=== PATIENT | male | born 1955 | race American Indian/Alaskan Native ===

== ENCOUNTER 2017-08-24 11:04 | Day surgery (SDC) | payer OTHER ==
[2017-08-24] MEDS ORDERED: NACL 0.9% 1000 ML 1,000 ML IV SCH (12:00)
[2017-08-24 12:36] VITALS: BP 122/78
[2017-08-24 13:35] LABS: Blood Urea Nitrogen 11 mg/dL (9-20)
--- NOTE | 2017-08-25 09:45 | Cat Scan Report ---
CT CHEST, ABDOMEN AND PELVIS WITH CONTRAST INDICATION: Kidney cancer. COMPARISON: 02/03/2016 CT. FINDINGS: Chest, abdomen and pelvis CT performed following oral contrast and intravenous administration of 100 cc of Omnipaque 300. CHEST: Postsurgical changes with some scarring in the right lower lobe now noted as on axial image 100, series 3, suggesting interval nodule resection. Clear remainder lungs. Unremarkable heart and great vessels. No effusions or size significant adenopathy with few small right paratracheal lymph nodes again noted measuring up to 0.8 cm as on axial image 31, series 2. Patent central airway. Normal thyroid. Mild nonspecific distal esophageal wall prominence/thickening, not excluded for gastroesophageal reflux and/or hiatal hernia, amongst others. ABDOMEN: Right nephrectomy clips again noted with grossly unremarkable fossa, occupied by bowel. A gastrohepatic ligament lymph node now slightly prominent at 0.8 cm as on axial series 2, image 166, though remains nonspecific. Liver, spleen, gallbladder, pancreas, adrenals, nonaneurysmal abdominal aorta with a few atherosclerotic calcifications and IVC remain within normal limits. Stable left kidney, including a 0.8 cm lower pole cortical hypodensity/cyst. No ascites. Opacified GI tract nonobstructive. Mild descending colon stool. PELVIS: Stable small prostatic calcifications and non-opacified, suboptimally distended urinary bladder. Usual rectosigmoid stool. No free fluid or significant adenopathy. Lumbar spine degenerative changes from L2-L5 again noted, including mild spurring, L2-L3 degenerative sclerosis as also disc degeneration with narrowing and vacuum phenomenon. CONCLUSION: 1. Interval right lower lobe nodule resection without evidence of new pulmonary nodules. 2. Slight nonspecific gastrohepatic ligament lymph node prominence without CT evidence of solid organ metastatic disease in the abdomen or pelvis. Please correlate. 3. Few other incidental findings, including stable right nephrectomy, as above. Thank you for the opportunity to participate in this patient's care.
== END 2017-08-24 16:30 | disposition home or self-care (01) ==
LOC: CATHLABREC 11:04 → EDSTATUS 11:30 → CATHLABREC 16:30
PROVIDERS: ATTEND Internal Medicine Nephrology
DX: C64.1 Malignant neoplasm of right kidney, except renal pelvis (principal); Z90.5 Acquired absence of kidney
CPT/HCPCS: 36415; 71260; 74177; 82565; 84520; 96360; 96361; J7030; Q9967

== ENCOUNTER 2018-11-04 05:59 | Day surgery (SDC) | payer OTHER ==
[2018-11-04 06:48] LABS: Blood Urea Nitrogen 16 mg/dL (9-20)
[2018-11-04] MEDS ORDERED: NACL 0.9% 1000 ML 1,000 ML IV SCH (07:00)
[2018-11-04 08:45] VITALS: BP 131/84
--- NOTE | 2018-11-04 09:04 | Cat Scan Report ---
CT CHEST WITH CONTRAST INDICATION / CLINICAL INFORMATION: pulmonary nodule, hx of kidney cancer. TECHNIQUE: Axial CT images were obtained through the chest after 100 cc of Omnipaque 300 IV contrast. Sagittal a nd coronal reformatted images. All CT scans at this location are performed using CT dose reduction fo r ALARA by means of automated exposure control. COMPARISON: [facility] chest report dated 08/24/2017 FINDINGS: HEART: No significant abnormality. THORACIC AORTA: No significant abnormality. MEDIASTINUM and TREE: No significant abnormality. LUNGS: Linear scarring is identified in the right lower lobe consistent with right lower lobe nodule resection. Otherwise the lungs are clear. No new nodules identified. Minimal centrilobular emphysema tous changes are suspected in the upper lobes. PLEURA: No significant pleural effusion. No pneumothorax. SKELETAL SYSTEM: No significant abnormality. UPPER ABDOMEN: No significant abnormality. ADDITIONAL FINDINGS: None. IMPRESSION: Stable scarring in the right lower lobe. No pulmonary nodules appreciated. Minimal emphysematous marquez ges. Signer Name: Todd Mcfarland Jr, MD Signed: 11/04/2018 9:00 AM Workstation Name: [id number]
== END 2018-11-04 10:40 | disposition home or self-care (01) ==
LOC: CATHLABREC 05:59
PROVIDERS: ATTEND Internal Medicine Nephrology
DX: R91.1 Solitary pulmonary nodule (principal); I10 Essential (primary) hypertension; K21.9 Gastro-esophageal reflux disease without esophagitis; M19.90 Unspecified osteoarthritis, unspecified site; F17.210 Nicotine dependence, cigarettes, uncomplicated; Z82.61 Family history of arthritis; Z85.528 Personal history of other malignant neoplasm of kidney; Z79.899 Other long term (current) drug therapy; Z90.5 Acquired absence of kidney; Z83.3 Family history of diabetes mellitus; Z82.49 Family history of ischemic heart disease and other diseases of the circulatory system
CPT/HCPCS: 36415; 71260; 82565; 84520; 96360; 96361; J7030; Q9967